=== PATIENT | female | born 1970 | race African-American/Black ===

== ENCOUNTER 2019-03-29 08:55 | Emergency (ER) | payer BC ==
[~2019-03-29] VITALS: Ht 165.1 cm; Wt 104.3 kg
[2019-03-29 08:55] VITALS: BP 131/95
[~2019-03-29 08:55] MED LIST: LISINOPRIL10 MG PO; MOBIC15 MG PO; NORCO 5-325 TA1 EACH PO
== END 2019-03-29 09:38 | disposition home or self-care (01) ==
LOC: ER 08:55
DX: R60.0 Localized edema (principal); I10 Essential (primary) hypertension; L40.50 Arthropathic psoriasis, unspecified; Z88.0 Allergy status to penicillin

== ENCOUNTER 2019-08-28 01:00 | Emergency (ER) | payer BC ==
[~2019-08-28] VITALS: Ht 165.1 cm; Wt 99.8 kg
[2019-08-28] MEDS ORDERED: OTEZLA30 MG PO (01:13)
[2019-08-28] MEDS ORDERED: NORVASC5 MG PO (01:20)
[2019-08-28] MEDS ORDERED: BRYHALI100 GM TOP (01:21)
[2019-08-28 01:42] LABS: URINE BILIRUBIN NEGATIVE (Negative); URINE BLOOD NEGATIVE (Negative); URINE CLARITY SL CLOUDY; URINE COLOR YELLOW; URINE GLUCOSE-RANDOM* NEGATIVE (Negative); URINE KETONES NEGATIVE (Negative); URINE LEUKOCYTES-REFLEX 1+ (Negative); URINE NITRITE-REFLEX NEGATIVE (Negative); URINE PROTEIN (DIPSTICK) NEGATIVE (Negative); URINE SPECIFIC GRAVITY 1.015 (1.005-1.035); URINE UROBILINOGEN 0.2 E.U./dl (0.2-1.0)
[2019-08-28 02:09] LABS: CASTS None Seen /LPF (None Seen); MUCUS 0-3 Light strn/LPF (None Seen); SQUAMOUS 4-10 Moderate /LPF (0-3); URINE RBC 0-2 Rare /HPF (0-2); URINE WBC-REFLEX 6-15 Few /HPF (0-5)
[2019-08-28 02:10] LABS: CRYSTALS None Seen /LPF (None Seen)
[2019-08-28] MEDS ORDERED: LIDOCAINE 2%2 %/5 GM TOP (02:11)
[2019-08-28] MEDS ORDERED: METRONIDAZOLE500 M4 PO (02:11)
[2019-08-28 02:15] VITALS: BP 178/98
== END 2019-08-28 02:15 | disposition home or self-care (01) ==
LOC: ER 01:00
PROVIDERS: Emergency Medicine Emergency Medical Services
DX: N76.0 Acute vaginitis (principal); B96.89 Other specified bacterial agents as the cause of diseases classified elsewhere; I10 Essential (primary) hypertension; L40.9 Psoriasis, unspecified; Z88.0 Allergy status to penicillin

== ENCOUNTER 2019-09-04 01:29 | Emergency (ER) | payer BC ==
[~2019-09-04] VITALS: Ht 170.2 cm; Wt 99.8 kg
[~2019-09-04 01:29] MED LIST changes: +BRYHALI100 GM TOP; +LIDOCAINE 2%2 %/5 GM TOP; +METRONIDAZOLE500 M4 PO; +NORVASC5 MG PO; +OTEZLA30 MG PO
[2019-09-04 02:20] VITALS: BP 166/111
[2019-09-04] MEDS ORDERED: PREDNISONE 10 M10 M1 PO (02:42)
== END 2019-09-04 03:06 | disposition home or self-care (01) ==
LOC: ER 01:29
DX: L29.9 Pruritus, unspecified (principal); I10 Essential (primary) hypertension; L40.9 Psoriasis, unspecified; L40.50 Arthropathic psoriasis, unspecified; Z88.0 Allergy status to penicillin

== ENCOUNTER 2020-12-24 09:39 | Emergency (ER) | payer BC ==
[~2020-12-24] VITALS: Ht 165.1 cm; Wt 103.9 kg
[~2020-12-24 09:39] MED LIST changes: +PREDNISONE 10 M10 M1 PO
[2020-12-24] MEDS ORDERED: HYDROCODON-ACE1 EAC7 PO ×2 (11:39→11:42)
[2020-12-24] MEDS ORDERED: FLEXERIL PO ×2 (11:39→11:42)
[2020-12-24 12:42] VITALS: BP 182/111
== END 2020-12-24 13:17 | disposition home or self-care (01) ==
LOC: ER 09:39
DX: M25.532 Pain in left wrist (principal); M54.5 Low back pain; I10 Essential (primary) hypertension; Z88.0 Allergy status to penicillin; Z79.899 Other long term (current) drug therapy; Z90.710 Acquired absence of both cervix and uterus; X50.1XXA Overexertion from prolonged static or awkward postures, initial encounter; Y93.01 Activity, walking, marching and hiking; Y92.89 Other specified places as the place of occurrence of the external cause; Y99.9 Unspecified external cause status